=== PATIENT | female | born 1990 | race Caucasian/White ===

== ENCOUNTER 2016-10-09 03:55 | Emergency (ER) | payer SELFPAY ==
[~2016-10-09] VITALS: Ht 157.5 cm; Wt 61.6 kg
[~2016-10-09 03:55] MED LIST: BUTA1CAP38 PO; METO10TA96 PO; SUMA100T9 PO
[2016-10-09 04:02] VITALS: Ht 157.5 cm; Wt 61.6 kg
[2016-10-09] MEDS ORDERED: ONDANSETRON (ODT) 4 MG TAB ODT STA (05:49)
--- NOTE | 2016-10-09 06:17 | ERD ---
ER Documentation Chief Complaint Date/Time DATE: 10/09/16 TIME: 06:05 Chief Complaint Headache since yesterday HPI 26 y/o female presents to ED for left-sided headache that started yesterday morning. Pain was described as excruciating non-radiating with a pain rate of 10 /10. Stated that she had this headache before and the same as her migraine headache. Also added that the pain started gradually with unknown specific time of time onset. Reports sensitivity to light. Vomited. Reports that she takes Imitrex 150 mg by mouth daily but she is supposed to take Imitrex by shot but she "cannot afford it." Asking for an "Imitrex IM" because this is the only medication that works for her. Denies head trauma, neck trauma, that is the worst headache of her life, dizziness, blurry vision, changes in vision, facial pain, ear pain, throat pain , difficulty swallowing, neck pain, shoulder pain, chest pain, cough, hemoptysis , abdominal pain, back pain, loss of appetite, hematochezia, diarrhea, constipation, urinary symptoms, , the possibility of being , bladder and bowel incontinences, extremity weakness, extremity tenderness, numbness or tingling sensation, difficulty walking, recent travel, recent exposure to illness, recent antibiotic use in the last 3 months, fever, chills. Allergy: NKA PMH: Migraines. Family medical history: Denies family history of stroke and cardiac disease. with one with 1 week miscarriage. LMP: "I am on it right now.." Medications: Imitrex 150 mg daily. States that she "supposed to take a shot but cannot afford it." Surgery: Denies. Primary Social History: Not working at this time. Friend stated that she is homeless. Denies smoking, use of alcohol, use of illegal drugs. ROS All systems reviewed and are negative except as per history of present illness. Medications Home Meds Active Scripts Metoclopramide* (Reglan*) 10 Mg Tablet, 10 MG PO Q6 Y for NAUSEA AND/OR VOMITING , #10 TAB Prov:PAVITHRA MERCER 10/09/16 Sumatriptan Succinate* (Imitrex*) 100 Mg Tablet, 100 MG PO BID Y for MIGRAINE HEADACHE for 14 Days, TAB May repeat after 2 hours if needed; MAX 200 mg/24 hours Prov:PAVITHRA MERCER 10/09/16 Metoclopramide Hcl* (Metoclopramide Hcl*) 10 Mg Tablet, 10 MG PO TID Y for NAUSEA, #14 TAB Prov:DAY SCHUSTER MD 07/14/15 Sumatriptan Succinate* (Imitrex*) 100 Mg Tablet, 100 MG PO BID Y for HEADACHE, # 14 TAB May repeat after 2 hours if needed; MAX 200 mg/24 hours Prov:DAY SCHUSTER MD 07/14/15 Wraxkxbmlq-Zanmfuuzldvxw-Esjgfxrq* (Fioricet*) 50-300-40 Mg Capsule, 1 CAP PO Q4H Y for HEADACHE, #30 CAP Prov:DAY SCHUSTER MD 07/14/15 Allergies Allergies: Coded Allergies: No Known Drug Allergies (Verified Allergy, Mild, 07/14/15) PMhx/Soc Medical and Surgical Hx: pt denies Surgical Hx History of Surgery: No Anesthesia Reaction: No Hx Neurological Disorder: No Hx Respiratory Disorders: Yes (Asthma) Hx Cardiac Disorders: No Hx Psychiatric Problems: No Hx Miscellaneous Medical Probl: Yes (migraine FLOWERS) Hx Alcohol Use: No Hx Substance Use: No Hx Tobacco Use: Yes Smoking Status: Current every day smoker Physical Exam Vitals Vital Signs Date Time Temp Pulse Resp B/P Pulse Ox O2 Delivery O2 Flow Rate FiO2 10/09/16 04:02 99.5 103 20 133/85 100 Physical Exam CONSTITUTIONAL: Well-appearing; well-nourished; in no apparent distress. HEAD: Normocephalic; atraumatic. EYES: Conjunctiva clear, sclera non-icteric, EOM intact. PERRL. Has slight sensitivity. Ears: Hearing intact. EACs clear, TMs non-bulging, non-inflamed, translucent & mobile, ossicles normal appearance, No obstructions, no erythema, no discharges Nose: No obstructions. No polyps. No external lesions. Mucosa non-inflamed. No external lesions, septum and turbinates normal. No rhinorrhea. No discharges. Frontal sinus is non-tender to palpation. Maxillary sinus is non-tender to palpation. MOUTH: Moist mucous membranes, no lesion, no obstructions, no vesicles, no thrush, patent airway Throat: Uvula in midline. Right tonsil is +1 with no erythema, no exudate. Left tonsil is +1 with no erythema, no exudate. Tolerating secretions well. Good gag reflex. Patent airway. Neck: Supple, without lesions, bruits, or adenopathy. No mass. Thyroid non- enlarged and non-tender to palpation. Good and full range of motion of the neck without pain and discomfort. CHEST: Symmetrical chest. Respirations even and not labored. No retractions noted. CARDIOVASCULAR: Normal S1, S2. RRR. No murmurs, gallops. RESPIRATORY: Normal chest excursion with respiration; breath sounds clear and equal bilaterally; no wheezes, rhonchi, or rales. Breathing even and unlabored. Speaking in clear, full, and complete sentences w/ ease. ABDOMEN: Normal bowel sounds normal. Soft, round, non-distended, non-guarding, no tenderness, no rebound, no organomegaly, no masses, no pulsating abdominal mass. No hernia. No peritoneal signs. : No CVA tenderness. BACK: Symmetrical shoulder. Spine is midline without deformity, tenderness. No evidence of trauma or deformity. PELVIS: Stable pelvis. No evidence of trauma or deformity. MUSCULOSKELETAL: Normal gait and station. No misalignment, asymmetry, crepitation, defects, tenderness, masses, effusions, decreased range of motion, instability, atrophy or abnormal strength or tone in the head, neck, spine, ribs , pelvis or extremities. No calf tenderness. NEUROVASCULAR: Distal pulses are present. Pedal pulse are present, equal, and normal. Capillary refills are < 2 seconds. NEUROLOGIC: Alert and oriented x4. Speaks full and clear sentences. Cranial Nerves II-XII normal. Sensation to pain, touch, and proprioception normal. Grossly unremarkable. No neurologic deficits. Romberg test is negative. PSYCHOLOGICAL: The patients mood and manner are appropriate. No hallucinations , delusions. Not SI. Not HI. Has the capacity to decide for self SKIN: Normal for age and ethnicity; warm; dry; good turgor; no apparent lesions or exudates. No rashes, hives, discoloration. Intact. Results 24 hrs Current Medications Medications (Trade) Dose Ordered Sig/Macey Route PRN Reason Start Time Stop Time Status Last Admin Dose Admin Ondansetron HCl (Zofran Odt) 4 mg ONCE STAT ODT 10/09/16 05:49 10/09/16 05:50 DC 10/09/16 05:55 Sumatriptan Succinate (Imitrex) 6 mg ONCE ONCE SC 10/09/16 06:30 10/09/16 06:31 DC 10/09/16 06:45 Diphenhydramine HCl (Benadryl) 25 mg ONCE ONCE PO 10/09/16 07:00 10/09/16 07:01 DC 10/09/16 06:54 Procedures/MDM Examination: Please see physical examination. Disease process, medical treatment was explained to the patient. She verbalized understanding and agreed with the diagnostic tests, medical treatment, and follow-up care. POC urine : Negative. Treatment: Zofran. Imitrex IM. Benadryl p.o. Re-evaluation: Denies headache, light sensitivity, neck pain, neck stiffness, chest pain, back pain. No focal neurologic deficit. No nausea and vomiting. States that she feels much better at this time. Neuro is intact. Romberg test is negative. Consultation: None. Differential diagnosis: Subarachnoid hemorrhage versus meningitis versus migraine versus sinus headache Medical decision makin26 y/o female presents to ED for left-sided headache that started yesterday morning. Pain was described as excruciating non- radiating with a pain rate of 10/10. Stated that she had this headache before and the same as her migraine headache. Also added that the pain started gradually with unknown specific onset. Reports sensitivity to light. Reports that she takes Imitrex 150 mg by mouth daily but she is supposed to take Imitrex by shot but she cannot afford it. Asking for an "Imitrex IM" because this is the only medication that works for her. I have low suspicion for subarachnoid hemorrhage because patient stated that this is not the worst headache of her life and that she had this headache before. I have low suspicion for meningitis because patient had the same headache before and that patient has no neck stiffness, neck pain and there is no pain on eye movement and extraocular movement of her eyes is intact and within normal limits. Patient 's complaint, patient's history, patient's presentation, my physical examination are consistent with my final diagnosis of migraine headache. Medications prescribed are the following: Imitrex. Reglan. Patient and family member are made aware of the side effects and adverse reactions of the medications prescribed. Instructed on when to seek emergent and medical attention in case allergic/anaphylactic reactions or severe side effects and or adverse reactions to medications. Patient and family member verbalized understanding. Patient instructed Instructed to follow-up with his PCP in 24-48 hours. PCP to refer patient to neurologist in the next 24-48 hours. Community resources was also provided to patient. Instructed to Call 911 for chest pain, shortness of breath. Advised to come back here in ED as soon as possible for severity of symptoms which includes but not limited to: any new symptoms; shortness of breath/difficulty of breathing; cardiovascular changes; severe gastrointestinal symptoms; signs and symptoms of bleeding and or infection; signs of compartment syndrome/neurovascular changes; neurological changes/deficits. Patient and family member verbalized understanding. Upon discharge, patient is alert and oriented x 4, speaks full and clear sentences, denies pain, has no neurological deficits, has no neurovascular deficits, difficulty of breathing. Denies headache, neck pain, neck stiffness, chest pain, back pain. breathing even and unlabored. Lung sounds are clear to auscultation. Not in distress. Appears comfortable. Ambulatory with steady gait. Appears satisfied with care provided here in ED. Departure Diagnosis: Primary Impression: Migraine Migraine type: unspecified Status migrainosus presence: without status migrainosus Intractability: not intractable Qualified Code: G43.909 - Migraine without status migrainosus, not intractable, unspecified migraine type Condition: Good Additional Instructions: Follow-up with PCP in the next 24-48 hours. PCP to refer patient to neurologist the next 24-48 hours. Community resources was also provided to the patient. PAVITHRA MERCER Oct 09, 2016 06:17
[2016-10-09] MEDS ORDERED: SUMATRIPTAN 6 MG/0.5 ML INJ SC ONE (06:30)
[2016-10-09] MEDS ORDERED: DIPHENHYDRAMINE 25 MG CAP PO ONE (07:00)
[2016-10-09] MEDS ORDERED: SUMA100T9 PO (07:52)
[2016-10-09] MEDS ORDERED: METO10TA92 PO (07:53)
== END 2016-10-09 08:00 | disposition home or self-care (01) ==
LOC: FTE 03:55
DX: G43.909 Migraine, unspecified, not intractable, without status migrainosus (principal); J45.909 Unspecified asthma, uncomplicated; F17.210 Nicotine dependence, cigarettes, uncomplicated; R11.10 Vomiting, unspecified
CPT/HCPCS: 96372; 99284; J3030

== ENCOUNTER 2016-12-27 17:48 | Emergency (ER) | payer OTHER ==
[~2016-12-27] VITALS: Ht 165.1 cm; Wt 59.5 kg
[~2016-12-27 17:48] MED LIST changes: +METO10TA92 PO
[2016-12-27 17:50] VITALS: Ht 165.1 cm; Wt 59.5 kg
[2016-12-27] MEDS ORDERED: DIPHENHYDRAMINE 50 MG INJ IV STA (20:07)
[2016-12-27] MEDS ORDERED: ONDANSETRON 4 MG INJ IV STA (20:07)
[2016-12-27] MEDS ORDERED: SOD CHLORIDE 0.9% 1,000 ML IV STA (20:07)
[2016-12-27] MEDS ORDERED: morphine 2 MG INJ IV ONE (20:30)
--- NOTE | 2016-12-27 20:42 | RADRPT ---
PROCEDURE: CT brain without contrast CLINICAL INDICATION: Headaches TECHNIQUE: A CT of the brain was performed utilizing axial sections from the skull base through th e vertex without contrast. Sagittal and coronal images were also reformatted. The exam CTDIvol = 45. 01 mGy and DLP = 720.23 mGy-cm. COMPARISON: None available FINDINGS: No acute intracranial hemorrhage is identified. There is no mass effect or midline shift. No extra -axial fluid collection is seen. The ventricles and sulci are within normal limits for size and con figuration. The density of the brain is within normal limits. Iglesias-white differentiation is preser byron. The osseous structures are unremarkable. The mastoid air cells and visualized paranasal sinuses are clear. RPTAT:HJJR IMPRESSION: Unremarkable noncontrast CT of the brain. Physician Celsa Date Time Electronically viewed and signed by Physician Celsa on 12/27/2016 20:42 /
[2016-12-27 20:48] LABS: ADD SCAN DIFF NO
[2016-12-27 20:50] LABS: BASOPHILS % 0.5 % (0.0-2.0); EOSINOPHILS # 0.2 10^3/ul (0.0-0.5); EOSINOPHILS % 3.4 % (0.0-7.0); HEMATOCRIT 30.9 % (37.0-47.0); HEMOGLOBIN 9.3 g/dl (12.0-16.0); LYMPHOCYTES # 1.7 10^3/ul (0.8-2.9); LYMPHOCYTES % 27.6 % (15.0-51.0); MEAN CORPUSCULAR HEMOGLOBIN 22.5 pg (29.0-33.0); MEAN CORPUSCULAR HGB CONC 30.1 g/dl (32.0-37.0); MEAN CORPUSCULAR VOLUME 74.6 fl (82.0-101.0); MEAN PLATELET VOLUME 10.3 fl (7.4-10.4); MONOCYTE # 0.8 10^3/ul (0.3-0.9); MONOCYTES % 13.2 % (0.0-11.0); NEUTROPHIL # 3.4 10^3/ul (1.6-7.5); PLATELET COUNT 251 10^3/UL (140-415); RED BLOOD COUNT 4.14 10^6/ul (4.20-5.40); RED CELL DISTRIBUTION WIDTH 14.6 % (11.5-14.5); WHITE BLOOD COUNT 6.1 10^3/ul (4.8-10.8)
[2016-12-27 21:02] LABS: INR 1.16; PROTIME 14.8 Sec (12.2-14.2); PT RATIO 1.2
[2016-12-27 21:03] LABS: PARTIAL THROMBOPLASTIN TIME 56.7 Sec (25.0-35.0)
[2016-12-27 21:04] LABS: POTASSIUM 3.6 mmol/L (3.5-5.1)
[2016-12-27 21:07] LABS: CREATININE 0.65 mg/dl (0.44-1.00)
[2016-12-27 21:08] LABS: CALCIUM 8.9 mg/dl (8.4-10.2)
[2016-12-27] MEDS ORDERED: KETOROLAC 15 MG INJ IV STA (21:39)
--- NOTE | 2016-12-27 21:39 | ERD ---
ER Documentation Chief Complaint Date/Time DATE: 12/27/16 TIME: 21:38 Chief Complaint HEADCAHE , FEVER X 1 WEEK , CONSTIPATION X 1 WEEK HPI This 26-year-old female presents to the emergency department with complaint of headache 1 week headache is located on the top of her head, patient reports tingling, pain is/10 on pain scale, patient reports fever, pain with eye movement, and nausea. ROS All systems reviewed and are negative except as per history of present illness. Medications Home Meds Active Scripts Ibuprofen* (Motrin*) 400 Mg Tab, 400 MG PO Q6, #30 TAB Prov:GIANROBERTALEXIS 12/27/16 Metoclopramide* (Reglan*) 10 Mg Tablet, 10 MG PO Q6 Y for NAUSEA AND/OR VOMITING , #10 TAB Prov:PAVITHRA MERCER F 10/09/16 Sumatriptan Succinate* (Imitrex*) 100 Mg Tablet, 100 MG PO BID Y for MIGRAINE HEADACHE for 14 Days, TAB May repeat after 2 hours if needed; MAX 200 mg/24 hours Prov:SYLVIEPAVITHRA David 10/09/16 Metoclopramide Hcl* (Metoclopramide Hcl*) 10 Mg Tablet, 10 MG PO TID Y for NAUSEA, #14 TAB Prov:DAY SCHUSTER MD 07/14/15 Sumatriptan Succinate* (Imitrex*) 100 Mg Tablet, 100 MG PO BID Y for HEADACHE, # 14 TAB May repeat after 2 hours if needed; MAX 200 mg/24 hours Prov:DAY SCHUSTER MD 07/14/15 Mtlpphtaye-Fopvmvstcwmkb-Pzawnfoi* (Fioricet*) 50-300-40 Mg Capsule, 1 CAP PO Q4H Y for HEADACHE, #30 CAP Prov:DAY SCHUSTER MD 07/14/15 Allergies Allergies: Coded Allergies: No Known Drug Allergies (Verified Allergy, Mild, 07/14/15) PMhx/Soc Medical and Surgical Hx: pt denies Surgical Hx History of Surgery: No Anesthesia Reaction: No Hx Neurological Disorder: No Hx Respiratory Disorders: Yes (Asthma) Hx Cardiac Disorders: No Hx Psychiatric Problems: No Hx Miscellaneous Medical Probl: Yes (migraine FLOWERS) Hx Alcohol Use: No Hx Substance Use: No Hx Tobacco Use: Yes Smoking Status: Current every day smoker Physical Exam Vitals Vitals stable, triage notes reviewed Physical Exam Const: No acute distress Head: Atraumatic Eyes: Normal Conjunctiva right pupil reaction sluggish, size 3. Left pupil reaction normal, +3. ENT: Normal External Ears, Nose and Mouth. Mucous membranes moist Neck: Full range of motion..~ No meningismus. Resp: Chest rise and fall symmetrically, clear to auscultation bilaterally, no respiratory distress Cardio: Abd: Skin: Back: Ext: Neuro: Alert and oriented Face: EOMI, face and pharynx with normal sensation and function Motor: Normal strength throughout Sensation: Normal sensation throughout Speech: Normal Cerebel: Normal coordination Normal gait Normal finger to nose DTR: 2+ and symmetric upper/lower extremities Psych: Normal Mood and Affect Results 24 hrs Laboratory Tests Test 12/27/16 20:25 White Blood Count 6.110^3/ul Red Blood Count 4.1410^6/ul Hemoglobin 9.3g/dl Hematocrit 30.9% Mean Corpuscular Volume 74.6fl Mean Corpuscular Hemoglobin 22.5pg Mean Corpuscular Hemoglobin Concent 30.1g/dl Red Cell Distribution Width 14.6% Platelet Count 80476^3/UL Mean Platelet Volume 10.3fl Neutrophils % 55.0% Lymphocytes % 27.6% Monocytes % 13.2% Eosinophils % 3.4% Basophils % 0.5% Nucleated Red Blood Cells % 0.0/100WBC Neutrophils # 3.410^3/ul Lymphocytes # 1.710^3/ul Monocytes # 0.810^3/ul Eosinophils # 0.210^3/ul Basophils # 0.010^3/ul Nucleated Red Blood Cells # 0.010^3/ul Prothrombin Time 14.8Sec Prothrombin Time Ratio 1.2 INR International Normalized Ratio 1.16 Activated Partial Thromboplast Time 56.7Sec Sodium Level 138mmol/L Potassium Level 3.6mmol/L Chloride Level 96mmol/L Carbon Dioxide Level 31mmol/L Anion Gap 15 Blood Urea Nitrogen 11mg/dl Creatinine 0.65mg/dl Glucose Level 74mg/dl Calcium Level 8.9mg/dl Urine Opiates Screen POSITIVE Urine Barbiturates NEGATIVE Urine Amphetamines Screen POSITIVE Urine Benzodiazepines Screen NEGATIVE Urine Cocaine Screen NEGATIVE Urine Cannabinoids NEGATIVE Current Medications Medications (Trade) Dose Ordered Sig/Macey Route PRN Reason Start Time Stop Time Status Last Admin Dose Admin Sodium Chloride (NS) 1,000 ml @ 1,000 mls/hr Q1H STAT IV 12/27/16 20:07 12/27/16 21:06 DC 12/27/16 20:38 Ondansetron HCl (Zofran Inj) 4 mg ONCE STAT IV 12/27/16 20:07 12/27/16 20:13 DC 12/27/16 20:38 Diphenhydramine HCl (Benadryl) 25 mg ONCE STAT IV 12/27/16 20:07 12/27/16 20:13 DC 12/27/16 20:38 Morphine Sulfate (morphine) 2 mg ONCE ONCE IV 12/27/16 20:30 12/27/16 20:31 DC 12/27/16 20:38 Ketorolac Tromethamine (Toradol) 15 mg ONCE STAT IV 12/27/16 21:39 12/27/16 21:40 DC 12/27/16 21:50 Procedures/MDM PROCEDURE: CT brain without contrast CLINICAL INDICATION: Headaches TECHNIQUE: A CT of the brain was performed utilizing axial sections from the skull base through the vertex without contrast. Sagittal and coronal images were also reformatted. The exam CTDIvol = 45.01 mGy and DLP = 720.23 mGy-cm. COMPARISON: None available FINDINGS: No acute intracranial hemorrhage is identified. There is no mass effect or midline shift. No extra-axial fluid collection is seen. The ventricles and sulci are within normal limits for size and configuration. The density of the brain is within normal limits. Iglesias-white differentiation is preserved. The osseous structures are unremarkable. The mastoid air cells and visualized paranasal sinuses are clear. RPTAT:HJJR IMPRESSION: Unremarkable noncontrast CT of the brain. Physician Celsa Date Time Electronically viewed and signed by Physician Celsa on 12/27/2016 20:42 This 26-year-old female presents to the emergency department for headache, possible migraine. Patient reports 1 week of tingling pain on the right side of her head, patient reports history of migraine and has used Imitrex in the past. Differential diagnosis includes but not limited to subarachnoid bleed, intracranial mass, migraine. Patient' pupillary responses abnormal, right pupil is sluggish, when compared to the left. Patient received IV fluid, Benadryl, Toradol, morphine, and Zofran with effective improvement of headache symptoms CAT scan unremarkable for any brain dysfunction. Patient skin is dirty , appears uncapped, patient denies homelessness, drug screen positive for methamphetamine, when asked about drug use patient at first denied use but then reports that she does use methamphetamine occasionally. Patient will be discharged home with Motrin, cessation of drug use discussed. 12-step program encouraged. Return to emergency room for neurologic changes, headache not improving with Motrin, nausea vomiting. I feel the patient is stable for discharge at this time. I have discussed results, examination findings, the treatment plan with the patient and family present prior to discharge. Indications for emergent reevaluation, side effects of medication were also discussed. All questions were answered. Patient verbalizes understanding and agrees with plan of care. Departure Diagnosis: Primary Impression: Headache Headache type: unspecified Headache chronicity pattern: unspecified pattern Intractability: not intractable Qualified Code: R51 - Nonintractable headache, unspecified chronicity pattern, unspecified headache type Condition: Good Patient Instructions: Self-Care for Headaches Referrals: [facility] Additional Instructions: Thank you for for coming to [facility] for your care today. Please ask your nurse or provider if you have questions about your care today and do not leave until all your questions have been answered. Please use any medications given as directed and follow-up with your doctor (or the doctor you were referred to) in the next 2-3 days. If you do not have a primary care doctor you may follow up at the [facility] (listed below). You may also use motrin and tylenol as needed for fever and/or pain unless instructed otherwise by your provider or nurse. Indications for more urgent follow-up have been discussed, but you may return to the Emergency Department at ANY time for any worrisome or worsening symptoms. If you have abdominal pain, please know that no test or exam you received is perfect and you should follow up within 8 hours for continued pain. If you had any imaging studies today, such as an X-Ray or CT Scan, these studies will be reviewed later by a radiologist. You will be called if there are important findings that were not identified today, so make sure the contact information you provided at registration is correct. If you received any narcotic pain control medicine today, such as Vicodin, Morphine or Dilaudid, your coordination and judgment may be affected for a number of hours. Please do not drive or operate heavy machinery, and you may want someone to assist you at home. If you were given a prescription for narcotic medication, be aware that it is very addictive- use sparingly and only if necessary. ALEXIS FUENTES December 27, 2016 21:39
[2016-12-27 21:42] LABS: BARBITURATES NEGATIVE (NEGATIVE); BENZODIAZEPINES NEGATIVE (NEGATIVE); CANNABINOIDS NEGATIVE (NEGATIVE); COCAINE NEGATIVE (NEGATIVE); OPIATES POSITIVE (NEGATIVE)
[2016-12-27] MEDS ORDERED: IBUP400T22 PO (21:54)
[2016-12-27 22:15] VITALS: BP 134/83; RESP 18; TEMP 98.8
== END 2016-12-27 22:16 | disposition home or self-care (01) ==
LOC: FTE 17:48
DX: R51 Headache (principal); J45.909 Unspecified asthma, uncomplicated; F17.210 Nicotine dependence, cigarettes, uncomplicated
CPT/HCPCS: 70450; 80048; 80307; 85025; 85610; 85730; J1200; J1885; J2270; J2405; J7030; 36415; 96374; 96375

== ENCOUNTER 2017-04-14 17:36 | Emergency (ER) | payer OTHER ==
[~2017-04-14] VITALS: Wt 59.1 kg
[~2017-04-14 17:36] MED LIST changes: +IBUP400T22 PO
[2017-04-14] MEDS ORDERED: PENICILLIN G BENZ 2.4 MIL UNIT SYG IM ONE (21:00)
[2017-04-14] MEDS ORDERED: CEPH500C PO (21:00)
--- NOTE | 2017-04-14 21:41 | ERD ---
ER Documentation Chief Complaint Date/Time DATE: 04/14/17 TIME: 21:31 Chief Complaint rash HPI community This is a 26-year-old female presenting to emergency department with generalized body rash 1 month. Patient states she is homeless and is currently using heroin and meth. Patient was sleeping outside in a tent and is now in a care home. Patient states she developed body rash on her arms and it quickly spread to the rest of her body. Rash is nonpruritic. Patient states it is somewhat itchy at night. Rash is nonpainful. No drainage. Patient denies fevers or chills. No genital lesions. ROS All systems reviewed and are negative except as per history of present illness. Medications Home Meds Active Scripts Cephalexin* (Cephalexin*) 500 Mg Capsule, 500 MG PO Q6, #28 CAP Prov:JAYDEN EMERSON NP 04/14/17 Ibuprofen* (Motrin*) 400 Mg Tab, 400 MG PO Q6, #30 TAB Prov:GINA,MELODY 12/27/16 Metoclopramide* (Reglan*) 10 Mg Tablet, 10 MG PO Q6 Y for NAUSEA AND/OR VOMITING , #10 TAB Prov:ROSCOEMAGEDPAVITHRA F 10/09/16 Sumatriptan Succinate* (Imitrex*) 100 Mg Tablet, 100 MG PO BID Y for MIGRAINE HEADACHE for 14 Days, TAB May repeat after 2 hours if needed; MAX 200 mg/24 hours Prov:JOSE MERCERAR F 10/09/16 Metoclopramide Hcl* (Metoclopramide Hcl*) 10 Mg Tablet, 10 MG PO TID Y for NAUSEA, #14 TAB Prov:DAY SCHUSTER MD 07/14/15 Sumatriptan Succinate* (Imitrex*) 100 Mg Tablet, 100 MG PO BID Y for HEADACHE, # 14 TAB May repeat after 2 hours if needed; MAX 200 mg/24 hours Prov:DAY SCHUSTER MD 07/14/15 Qpbuadqidu-Hxxmcwjfaalzq-Kgljgoqt* (Fioricet*) 50-300-40 Mg Capsule, 1 CAP PO Q4H Y for HEADACHE, #30 CAP Prov:DAY SCHUSTER MD 07/14/15 Allergies Allergies: Coded Allergies: No Known Drug Allergies (Verified Allergy, Mild, 11/28/15) PMhx/Soc History of Surgery: No Anesthesia Reaction: No Hx Neurological Disorder: Yes (Migraine HAs) Hx Respiratory Disorders: Yes (Asthma) Hx Cardiac Disorders: No Hx Psychiatric Problems: No Hx Miscellaneous Medical Probl: No Hx Alcohol Use: No Hx Substance Use: No Hx Tobacco Use: Yes Smoking Status: Current every day smoker Physical Exam Vitals Vital Signs Date Time Temp Pulse Resp B/P Pulse Ox O2 Delivery O2 Flow Rate FiO2 04/14/17 18:01 98.3 101 20 104/69 99 Physical Exam Const: No acute distress, alert Head: Atraumatic Eyes: Normal Conjunctiva ENT: Normal External Ears, Nose and Mouth. Neck: Full range of motion..~ No meningismus. Resp: Clear to auscultation bilaterally. no wheezing, rhonchi or crackles. Skin: multiple scattered round macular lesions with sloughing to bilateral arms, legs, trunk, neck and face. Palmar and plantar lesions Back: No midline or flank tenderness Ext: No cyanosis, or edema Neur: Awake and alert Psych: Normal Mood and Affect Results 24 hrs Current Medications Medications (Trade) Dose Ordered Sig/Macey Route PRN Reason Start Time Stop Time Status Last Admin Dose Admin Penicillin G Benzathine (Bicillin La) 2,400,000 units ONCE ONCE IM 04/14/17 21:00 04/14/17 21:01 DC Procedures/MDM MDM: 26 year old female presents to ER with widespread generalized erythematous maculopapular rash that is present on entire body including palms and plantar surfaces bilaterally. Patient is homeless and uses heroin and meth. Patient denies genital lesions. No dysuria, hematuria or vaginal discharge. Patient's RPR drawn while in the ED. Pending results. Patient given penicillin G B IM while in the ED. Vitals are stable. , Differential diagnosis includes but not limited to syphilis, allergic reaction , scabies, erythema multiforme, Shoaib-Angus syndrome, eczema, psoriasis, contact dermatitis or bacterial dermatitis. Patient is appropriate for outpatient management will be given prescription for Keflex. Instructed patient to follow-up with [facility] for reassessment and additional management. Return to ED for any high fever, chest pain, difficulty breathing, shortness breath, wheezing, vomiting, diarrhea, abdominal pain or any new or worsening symptoms. Patient verbalizes understanding. All questions answered at discharge. Disclaimer: Inadvertent spelling and grammatical errors are likely due to EHR/ dictation software use and do not reflect on the overall quality of patient care. Also, please note that the electronic time recorded on this note does not necessarily reflect the actual time of the patient encounter. Departure Diagnosis: Primary Impression: Rash Condition: Stable Patient Instructions: Self-Care for Skin Rashes, Syphilis Referrals: [facility] YOU HAVE RECEIVED A MEDICAL SCREENING EXAM AND THE RESULTS INDICATE THAT YOU DO NOT HAVE A CONDITION THAT REQUIRES URGENT TREATMENT IN THE EMERGENCY DEPARTMENT. FURTHER EVALUATION AND TREATMENT OF YOUR CONDITION CAN WAIT UNTIL YOU ARE SEEN IN YOUR DOCTORS OFFICE WITHIN THE NEXT 1-2 DAYS. IT IS YOUR RESPONSIBILITY TO MAKE AN APPOINTMENT FOR FOLOW-UP CARE. IF YOU HAVE A PRIMARY DOCTOR --you should call your primary doctor and schedule an appointment IF YOU DO NOT HAVE A PRIMARY DOCTOR YOU CAN CALL OUR PHYSICIAN REFERRAL HOTLINE AT IF YOU CAN NOT AFFORD TO SEE A PHYSICIAN YOU CAN CHOSE FROM THE FOLLOWING [facility] [address] [facility]. [facility] [address] [facility] [facility] [address] [facility] [address] [facility] [address] [facility]. [facility] [address] [facility]. [facility] YOU HAVE RECEIVED A MEDICAL SCREENING EXAM AND THE RESULTS INDICATE THAT YOU DO NOT HAVE A CONDITION THAT REQUIRES URGENT TREATMENT IN THE EMERGENCY DEPARTMENT. FURTHER EVALUATION AND TREATMENT OF YOUR CONDITION CAN WAIT UNTIL YOU ARE SEEN IN YOUR DOCTORS OFFICE WITHIN THE NEXT 1-2 DAYS. IT IS YOUR RESPONSIBILITY TO MAKE AN APPOINTMENT FOR FOLOW-UP CARE. IF YOU HAVE A PRIMARY DOCTOR --you should call your primary doctor and schedule and appointment IF YOU DO NOT HAVE A PRIMARY DOCTOR YOU CAN CALL OUR PHYSICIAN REFERRAL HOTLINE AT . IF YOU CAN NOT AFFORD TO SEE A PHYSICIAN YOU CAN CHOSE FROM THE FOLLOWING [facility] INSTITUTIONS: [facility] [address] [place] [address] [facility] [address] [place] [address] [facility] + [facility] [address] [place] [address] Additional Instructions: Call your primary care doctor TOMORROW for an appointment during the next 2-3 days.See the doctor sooner or return here if your condition worsens before your appointment time. Return to ED for any high fever, chest pain, difficulty breathing, shortness breath, wheezing, vomiting, diarrhea, abdominal pain or any new or worsening symptoms. JAYDEN EMERSON NP Apr 14, 2017 21:41
== END 2017-04-14 21:55 | disposition home or self-care (01) ==
LOC: FTE 17:36
DX: R21 Rash and other nonspecific skin eruption (principal); J45.909 Unspecified asthma, uncomplicated; F17.210 Nicotine dependence, cigarettes, uncomplicated
CPT/HCPCS: 96372; J0561; Z7502